=== PATIENT | female | born 1955 | race African-American/Black ===

== ENCOUNTER → 2019-07-09 | Outpatient (CLI) | payer MEDICARE ==
[~2019-07-09] MED LIST: ALDACTONE 25MG25 M1 PO; GLUCOPHAGE500 MG/TAB PO; GLYNASE PRES-TAB6 MG PO; LASIX 40MG TABL40 MG PO; THORAZINE200 MG PO; TOPROL XL 25MG25 MG PO; VENTOLIN0.09 MG IH; ZESTRIL 5MG5 MG PO; ZOLOFT 100MG100 MG PO
== END ==
LOC: COL.RAD 09:00
DX: R68.81 Early satiety (principal); R14.0 Abdominal distension (gaseous)